=== PATIENT | female | born 1980 | race Caucasian/White ===

== ENCOUNTER 2018-04-28 10:46 | Emergency (ER) | payer MEDICAID ==
[~2018-04-28] VITALS: Ht 170.2 cm; Wt 61.2 kg
[2018-04-28 10:57] VITALS: BP_SYST 112
[2018-04-28 12:22] VITALS: BP_SYST 112
== END 2018-04-28 12:22 | disposition home or self-care (01) ==
LOC: SED 10:46
DX: G44.209 Tension-type headache, unspecified, not intractable (principal); R05 Cough; M79.10 Myalgia, unspecified site
CPT/HCPCS: 36415; 86710; 99283

== ENCOUNTER 2023-06-19 09:27 | Emergency (ER) | payer MEDICAID ==
[~2023-06-19] VITALS: Ht 170.2 cm; Wt 68.0 kg
[2023-06-19 09:33] VITALS: BP_SYST 104; PULSE 86; RESP 18; TEMP 98.3; O2SAT 98
[2023-06-19 10:14] LABS: BILIRUBIN,URINE NEGATIVE (NEGATIVE); BLOOD, URINE 3+ (NEGATIVE); CLARITY/URINE CLEAR (CLEAR); COLOR,URINE YELLOW (YELLOW); GLUCOSE,URINE NEGATIVE (NEGATIVE); KETONES,URINE NEGATIVE (NEGATIVE); LEUKOCYTE ESTERASE ,URINE NEGATIVE (NEGATIVE); NITRITE, URINE NEGATIVE (NEGATIVE); PH,URINE 6.5 (5.0-8.0); PROTEIN URINE NEGATIVE (NEGATIVE); UROBILINOGEN,URINE 0.2 (0.2-1.0)
[2023-06-19] MEDS: DIPHENOXYLATE HCL/ATROP SULF 2.5 MG TAB PO ONE (10:21)
[2023-06-19] MEDS: ONDANSETRON 4 MG ODT TAB PO ONE (10:21)
[2023-06-19] MEDS: KETOROLAC TROMETHAMINE 30 MG VIAL IM ONE (10:22)
[2023-06-19 11:36] LABS: BACTERIA,URINE None Seen /HPF (None Seen); WBC,URINE 0-3 /HPF (0-3)
[2023-06-19 11:47] LABS: CALCIUM 8.2 mg/dL (8.4-11.0); CREATININE 0.74 mg/dL (0.55-1.30); POTASSIUM 3.5 mmol/L (3.5-5.1)
[2023-06-19] MEDS ORDERED: ONDA-8 TL (12:08)
[2023-06-19] MEDS ORDERED: LOM2.5 PO (12:08)
[2023-06-19 12:17] VITALS: BP_SYST 104; PULSE 86; RESP 18; TEMP 98.3; O2SAT 98
== END 2023-06-19 12:18 | disposition home or self-care (01) ==
LOC: SED 09:27
DX: K52.9 Noninfective gastroenteritis and colitis, unspecified (principal); R11.2 Nausea with vomiting, unspecified; R10.9 Unspecified abdominal pain; Z79.899 Other long term (current) drug therapy
CPT/HCPCS: 99283; 80048; 81001; 36415; 81025; 96372; 81000; 81015; Q0162; J1885